=== PATIENT | male | born 1990 | race African-American/Black ===

== ENCOUNTER 2021-01-26 12:17 | Inpatient (IN) | payer OTHER ==
[2021-01-26 17:14] VITALS: BMI 25.4
[2021-01-26] MEDS ORDERED: BISMUTH SUBSALICYLATE 524 MG/30 ML UD PO PRN (21:10)
[2021-01-26] MEDS ORDERED: ONDANSETRON *ODT* 4 MG TABLET SL PRN (21:10)
[2021-01-26] MEDS ORDERED: ACETAMINOPHEN 325 MG TABLET (FP) PO PRN (21:10)
[2021-01-26] MEDS ORDERED: MAG HYDROX/AL HYDROX/SIMETH 30 ML UNIT-DOSE CUP PO PRN (21:10)
[2021-01-26] MEDS ORDERED: MAGNESIUM HYDROX 2400MG/30ML ORAL SUSPENSION 30 ML CUP PO PRN (21:10)
[2021-01-26] MEDS ORDERED: chlordiazePOXIDE HCL 25 MG CAPSULE PO PRN (21:10)
[2021-01-26] MEDS ORDERED: MENTHOL/PHENOL 1 EACH UD MM PRN (21:10)
[2021-01-26] MEDS ORDERED: MAGNESIUM CITRATE 300 ML BOTTLE PO PRN (21:10)
[2021-01-26] MEDS ORDERED: NICOTINE POLACRILEX 2 MG GUM BUC PRN (21:10)
[2021-01-26] MEDS: IBUPROFEN 400 MG TABLET (FP) PO PRN (23:05)
[2021-01-26] MEDS: MELATONIN 5 MG TABLETS PO SCH (23:05)
[2021-01-26] MEDS: THIAMINE HCL 100 MG TABLET (FP) PO SCH (23:05)
[2021-01-26] MEDS: chlordiazePOXIDE HCL 25 MG CAPSULE PO SCH (23:06)
[2021-01-26] MEDS: METHOCARBAMOL 500 MG TABLET PO PRN (23:06)
[2021-01-27] MEDS: chlordiazePOXIDE HCL 25 MG CAPSULE PO SCH ×4 (06:46→22:20)
[2021-01-27] MEDS: ACETAMINOPHEN 325 MG TABLET (FP) PO PRN ×2 (06:48→22:23)
[2021-01-27] MEDS ORDERED: PRENATAL VITAMINS W/ FOLIC ACID TABLET (FP) PO SCH (10:00)
[2021-01-27] MEDS ORDERED: NICOTINE 14 MG/24 HOURS TOPICAL PATCH TD SCH (10:00)
[2021-01-27] MEDS: METHOCARBAMOL 500 MG TABLET PO PRN ×2 (11:00→22:22)
[2021-01-27 11:17] LABS: POTASSIUM 3.4 mmol/L (3.5-5.1)
[2021-01-27 11:20] LABS: CALCIUM 9.3 mg/dL (8.5-10.1)
[2021-01-27 11:21] LABS: ALBUMIN 3.9 g/dl (3.4-5.0); BLOOD UREA NITROGEN 16.3 mg/dL (7-18); MCH 35.1 pg (25.7-33.7); MCHC 35.2 g/dl (32.0-35.9); MEAN CELL VOLUME 99.6 fl (80-96); PLATELET COUNT 178 K/MM3 (134-434); RBC 3.71 M/mm3 (4.00-5.60); RDW 14.4 % (11.9-15.9); WHITE BLOOD COUNT 4.5 K/mm3 (4.0-10.0)
[2021-01-27 11:24] LABS: CREATININE 0.9 mg/dL (0.55-1.3)
[2021-01-27 11:25] LABS: BILIRUBIN,TOTAL 1.6 mg/dL (0.2-1)
[2021-01-27] MEDS ORDERED: POTASSIUM CHLORIDE ORAL LIQUID 20 MEQ/15 ML PO ONE ×2 (14:56→19:30)
[2021-01-27] MEDS: MELATONIN 5 MG TABLETS PO SCH (22:19)
[2021-01-27] MEDS: THIAMINE HCL 100 MG TABLET (FP) PO SCH (22:19)
[2021-01-28] MEDS ORDERED: chlordiazePOXIDE HCL 25 MG CAPSULE PO SCH (05:00)
[2021-01-28] MEDS: IBUPROFEN 400 MG TABLET (FP) PO PRN (05:36)
[2021-01-28 06:18] VITALS: BP 150/61; PULSE 83; TEMP 97.5
[2021-01-29] MEDS ORDERED: chlordiazePOXIDE HCL 10 MG CAPSULE PO PRN
[2021-01-29] MEDS ORDERED: chlordiazePOXIDE HCL 10 MG CAPSULE PO SCH (05:00)
[2021-01-30] MEDS ORDERED: chlordiazePOXIDE HCL 10 MG CAPSULE PO SCH (05:00)
[2021-01-31] MEDS ORDERED: chlordiazePOXIDE HCL 10 MG CAPSULE PO ONE (05:00)
== END 2021-01-28 10:29 | disposition left against medical advice (07) | DRG 770 ==
LOC: YASAS 12:17 → Y6N 21:23
PROVIDERS: ADMIT Allergy & Immunology; ATTEND Allergy & Immunology
PROC: HZ2ZZZZ Detoxification Services for Substance Abuse Treatment (ICD-10-PCS; principal; 2021-01-26)
DX: F10.230 Alcohol dependence with withdrawal, uncomplicated (principal); F17.213 Nicotine dependence, cigarettes, with withdrawal; F19.24 Other psychoactive substance dependence with psychoactive substance-induced mood disorder; K86.1 Other chronic pancreatitis
CPT/HCPCS: 36415; 80053; 85027; 86780; 93005; 93010